=== PATIENT | male | born 1935 | race Caucasian/White ===

== ENCOUNTER 2017-05-12 19:34 | Emergency (ER) | payer MEDICARE, BC ==
[2017-05-12 20:08] LABS: BASOPHILS 0.4 % (0-2); EOSINOPHILS 0.7 % (0-7); HEMATOCRIT 42.3 % (42.0-54.0); HEMOGLOBIN 14.5 g/dL (13.5-17.5); IMMATURE GRANULOCYTES 0.4 % (0-5); LYMPHOCYTES 11.5 % (15-50); MCH 31.9 pg (26.0-34.0); MCHC 34.3 g/dL (31.0-37.0); MEAN PLATELET VOLUME 8.8 fL (7.4-10.4); MONOCYTES 0.4 % (2-11); NEUTROPHILS 86.6 % (40-80); PLATELET COUNT 166 10x3/uL (130-400); RBC 4.55 10x6/uL (4.20-6.10); RDW 12.9 % (11.5-14.5); WBC 2.8 10x3/uL (4.8-10.8)
[2017-05-12 20:36] LABS: ALKALINE PHOSPHATASE 134 U/L (46-116); ALT (SGPT) 189 U/L (10-68); BILIRUBIN - TOTAL 2.08 mg/dL (0.2-1.3); CALC OSMOLALITY 283 mosm/kg (275-300); CALCIUM 8.8 mg/dL (8.5-10.1); CARBON DIOXIDE 26.5 mmol/L (21.0-32.0); CHLORIDE - SERUM 102 mmol/L (98-107); CKMB 2.2 U/L (0.0-3.6); CREATINE KINASE 148 UL (21-232); CREATININE - SERUM 1.3 mg/dL (0.6-1.3); GLUCOSE 106 mg/dL (74-106); PROTEIN - SERUM 6.9 g/dL (6.4-8.2); SODIUM 139 mmol/L (136-145); TROPONIN-I < 0.017 ng/mL (0.000-0.060); UREA NITROGEN 29 mg/dL (7-18); eGFR NON AFRICAN AMERICAN 56 mL/min (90-120)
[2017-05-12 20:37] LABS: POTASSIUM - SERUM 2.8 mmol/L (3.5-5.1)
[2017-05-12 21:15] LABS: AMYLASE - SERUM 50 U/L (25-115); LIPASE 233 U/L (73-393)
== END 2017-05-12 22:05 | disposition home or self-care (01) ==
LOC: D.ER 19:34
PROVIDERS: Emergency Medicine; Physician Assistant
DX: R50.9 Fever, unspecified (principal); R53.1 Weakness; R91.8 Other nonspecific abnormal finding of lung field; R79.89 Other specified abnormal findings of blood chemistry; Z86.79 Personal history of other diseases of the circulatory system; D72.819 Decreased white blood cell count, unspecified; E87.6 Hypokalemia; I10 Essential (primary) hypertension

== ENCOUNTER 2018-11-17 19:21 | Inpatient (IN) | payer MEDICARE, BC ==
[~2018-11-17] VITALS: Ht 180.3 cm; Wt 86.2 kg
[2018-11-17] MEDS ORDERED: NORVASC10 MG PO (19:57)
[2018-11-17] MEDS ORDERED: DIOVAN320 MG PO (19:57)
[2018-11-17] MEDS ORDERED: PROSCAR5 MG PO (19:58)
[2018-11-17] MEDS ORDERED: BAYER CHEWABLE81 MG PO (19:58)
[2018-11-17] MEDS ORDERED: TOPROL XL50 MG PO (19:58)
[2018-11-17] MEDS ORDERED: LEVOXYL75 MCG PO (19:58)
[2018-11-17] MEDS ORDERED: PLAVIX75 MG PO (19:58)
[2018-11-17] MEDS ORDERED: VITAMIN B-122500 MCG PO (19:59)
[2018-11-17] MEDS ORDERED: VITAMIN C WIT1000 MG PO (19:59)
[2018-11-17] MEDS ORDERED: VITAMIN E100 UNIT PO (19:59)
[2018-11-17] MEDS ORDERED: OMEGA-3100 MG PO (19:59)
[2018-11-17 21:11] LABS: APPEARANCE TURBID (CLEAR)
[2018-11-17 21:12] LABS: COLOR RED (YELLOW)
[2018-11-17 21:14] LABS: BACTERIA FEW /hpf (NEGATIVE); RED CELLS - URINE >50 /hpf (0-5); WHITE CELLS - URINE 0-5 /hpf (NEGATIVE)
[2018-11-17] MEDS ORDERED: CIPRO250 MG PO (21:18)
[2018-11-17] MEDS ORDERED: HYDROCODONE-A1 UDTA2 PO (21:18)
[2018-11-17 22:01] LABS: BASOPHILS 0.1 % (0-2); EOSINOPHILS 0.7 % (0-7); HEMATOCRIT 39.6 % (42.0-54.0); IMMATURE GRANULOCYTES 0.2 % (0-5); LYMPHOCYTES 21.1 % (15-50); MCH 32.2 pg (26.0-34.0); MCHC 35.4 g/dL (31.0-37.0); MEAN PLATELET VOLUME 9.1 fL (7.4-10.4); MONOCYTES 6.7 % (2-11); NEUTROPHILS 71.2 % (40-80); RBC 4.35 10x6/uL (4.20-6.10); RDW 12.7 % (11.5-14.5); WBC 8.4 10x3/uL (4.8-10.8)
[2018-11-17 22:11] LABS: INR 0.97 (0.85-1.17); PLATELET COUNT 202 10x3/uL (130-400); PROTIME 12.4 SECONDS (11.6-15.0)
[2018-11-17 22:15] LABS: ALBUMIN 3.7 g/dL (3.4-5.0); ANION GAP 13.2 mmol/L (8-16); BILIRUBIN - TOTAL 1.19 mg/dL (0.2-1.3); CALCIUM 9.4 mg/dL (8.5-10.1); CARBON DIOXIDE 27.4 mmol/L (21.0-32.0); CREATININE - SERUM 1.4 mg/dL (0.6-1.3); POTASSIUM - SERUM 3.6 mmol/L (3.5-5.1); PROTEIN - SERUM 6.9 g/dL (6.4-8.2)
--- NOTE | 2018-11-17 23:07 | NUR ---
ATTEMPTED TO IRRIGATE CATHETER. INITIALLY URINE COLOR BEGAN TO LIGHTEN BUT AFTER ABOUT 200ML CATHETER STOPPED WORKING. BRIGHT RED BLOOD COMING FROM AROUND CATHETER. REPLACED CATHERTER WITH 18 FR COUDE. ATTEMPTED TO IRRIGATED AFTER 150 ML CATHETER STOPPED WORKING. SET UP FOR CONT IRRIGATION PER MD ORDERS. AFTER 2 ATTEMPTED TO INSERT 3WAY IRRIGATION CATHETER BY THIS NURSE AND TRIAGE NURSE, UNSUCCESSFUL IN INSERTION. NOTIFIED ELIZABETH. INSTRUCTED TO ACTIVATE OR TEAM SO HE CAN TAKE PATIENT TO THE OR FOR A SCOPE
--- NOTE | 2018-11-17 23:51 | NUR ---
OR TRANSFER PT TO FLOOR AT THIS TIME. RUFUS PRICE
[2018-11-18] VITALS (10 sets, daily range): BP systolic 72–153; BP diastolic 47–80; Ht 180.3 cm; Wt 86.2 kg
[2018-11-18 05:02] LABS: BASOPHILS 0 % (0-2); EOSINOPHILS 0.1 % (0-7); HEMATOCRIT 34.9 % (42.0-54.0); HEMOGLOBIN 12.1 g/dL (13.5-17.5); IMMATURE GRANULOCYTES 0.4 % (0-5); LYMPHOCYTES 10.5 % (15-50); MCH 31.7 pg (26.0-34.0); MCHC 34.7 g/dL (31.0-37.0); MCV 91.4 fL (80.0-100.0); MEAN PLATELET VOLUME 9.4 fL (7.4-10.4); MONOCYTES 5.8 % (2-11); NEUTROPHILS 83.2 % (40-80); PLATELET COUNT 200 10x3/uL (130-400); RBC 3.82 10x6/uL (4.20-6.10); RDW 12.8 % (11.5-14.5)
[2018-11-18 05:22] LABS: ANION GAP 10.8 mmol/L (8-16); CALCIUM 8.4 mg/dL (8.5-10.1); CARBON DIOXIDE 28.9 mmol/L (21.0-32.0); CREATININE - SERUM 1.3 mg/dL (0.6-1.3); MAGNESIUM - SERUM 1.9 mg/dL (1.8-2.4); PHOSPHOROUS 4.1 mg/dL (2.5-4.9); POTASSIUM - SERUM 3.7 mmol/L (3.5-5.1)
--- NOTE | 2018-11-18 07:50 | NUR ---
ROUNDING DONE WITH PATIENT HAVING NO NEEDS AT THIS TIME. ON 1L PER NC. LEFT WRIST SEEN WITH SALINE LOCK, RIGHT WIRST PIV WITH D5NS INFUSING AT 100 CC/HR. CONINUOUS IRRIAGATION SEEN TO BLAKE CATH WITH GRAPEFUIT COLOR OUTPUT. NO CLOTS SEEN. AT BEDSIDE. ON EP, LAB VALUES GOOD. WILL CPOC.
--- NOTE | 2018-11-18 08:12 | OP ---
PATIENT NAME: KARLEY MCRAE MEDICAL RECORD: [id number] :39 LOCATION:D.M3 D.1213 ADMISSION DATE:11/17/18 SURGEON: TYESHA ELIZABETH MD DATE OF OPERATION: 11/18/2018 SURGEON: Tyesha Elizabeth MD ANESTHESIA: TIVA by Isauro Reilly CRNA DIAGNOSES: Clot, urinary retention, gross hematuria. PROCEDURES: Cystoscopy, bladder clot evacuation, fulguration of bleeders, Holly catheter insertion. FINDINGS: Bladder filled with clots. Large veins on the prostatic urethra near the bladder neck were bleeding. These were fulgurated. BLOOD LOSS: Difficult to estimate. CLINICAL HISTORY: This is an 83-year-old male, who came to the Emergency Room. He had gross hematuria starting from yesterday. Today, he was unable to void as his bladder had filled up with clots. The ER tried to insert a Holly catheter, but it probably plugged up with clots. Therefore, urological consultation was requested. He has not eaten since early in the morning today. We are now bringing him to the operating room for cystoscopy, bladder clot evacuation, and insertion of a Holly catheter over a guidewire to start continuous bladder irrigation. He was given Ancef lead applications developer to the OR. DESCRIPTION OF PROCEDURE: The patient was given IV sedation. He was then placed in the lithotomy position and prepped and draped. A 21-Croatian cystoscope with 30-degree lens was used for visualization. The prostatic urethra and the bladder were filled with blood clots. A Johanny syringe was used through the cystoscope sheath to start the declotting process. As the clots became smaller, I then switched to the [facility] evacuator. Looking into the bladder, there was no obvious sign of a bladder tumor. There was no obvious bladder bleeding. However, looking at the prostatic urethra, there was venous bleeding coming from numerous veins near the bladder neck and the prostatic urethra. We switched the irrigation from normal saline to sterile water. A Bugbee electrode was introduced and these bleeding veins were coagulated. Once there was no further active bleeding through the sheath of the cystoscope, I inserted a Sensor wire into the bladder. The cystoscope sheath was then removed leaving the wire in place. A 24-Croatian 3-way knik tip Holly catheter was then inserted over the guidewire into the bladder. Once the catheter was fully in the bladder, the balloon was inflated with 10 cc of sterile water. Then, continuous bladder irrigation was started with normal saline. The sensor wire was removed entirely. The patient has had a previous [facility] TURP followed by a resection loop TURP 3 years ago in [place], [place]. 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 There was no obstruction in the prostatic urethra. TRANSINT:[id number] Voice Confirmation ID: [id number] DOCUMENT ID: [id number] OPERATIVE REPORT [id number] KARLEY MCRAE ROBERT S MD at 0812 CC: [id number] DICTATION DATE: 11/18/18 010 ARTIST'S REPRESENTATIVE: 11/18/18 0655 [facility] [place] [id number] [place] [address]
--- NOTE | 2018-11-18 16:16 | NUR ---
PATIENT WITH 99.5 TEMP. ENCOURGED TO COUGH AND DEEP BREATH.
--- NOTE | 2018-11-18 16:42 | NUR ---
STILL WITH CONINUOUS IRRIGATION GOING. URINE IS SLIGHT RED, 1 SMALL CLOST SEEN TO TUBING. WILL CPOC.
--- NOTE | 2018-11-18 17:31 | NUR ---
ASSISTED TO RESTROOM FOR BM. SMALL, BROWN FORMED. CLEAN GOWN AND GENITAL AREA CLEANED UP. RIGHT IV IS INFILTRATING. IV CATH REMOVED WITH TIP INTACT. SALINE LOCK TO LEFT WRIST IS USED FOR PRIMARY FLUIDS.
--- NOTE | 2018-11-18 19:50 | NUR ---
EVEINING ROUNDS COMPLETED. VSS, AAOX3, THREE CONSTANT BLADDER IRRIGATION SYSTEM INTACT. MINIMAL BLEEDING OBSERVED AT TIP OF BLAKE CATH. HELP CLEANED SITE. PT OUTPUT AT THIS TIME IS 1000CC'S, WILL CTM. PT DENIES ANY PAIN AT THIS TIME. URINE CLEAR, BUT BLOOD TINGED. PT STATES IT HAS IMPROVED COMPARED TO "YESTERDAY." PT DENIES ANY FURTHER NEEDS AT THIS TIME. WILL CPOC. CL WITHIN REACH BED IN LOW, SR UP X2.
--- NOTE | 2018-11-18 23:30 | NUR ---
ASSIST PT TO THE REST ROOM. PT 3-WAY IRRIGATION SYSTEM INTACT AND DRAINING. PT DENIES ANY FURTHER NEEDS AT THIS TIME. WILL CPOC.
[2018-11-19] VITALS: BP 155/77
[2018-11-19 03:59] VITALS: BP 157/82
[2018-11-19 07:09] LABS: BASOPHILS 0.3 % (0-2); EOSINOPHILS 2.9 % (0-7); HEMATOCRIT 32.1 % (42.0-54.0); HEMOGLOBIN 11.1 g/dL (13.5-17.5); IMMATURE GRANULOCYTES 0.1 % (0-5); LYMPHOCYTES 21.7 % (15-50); MCH 31.7 pg (26.0-34.0); MCHC 34.6 g/dL (31.0-37.0); MCV 91.7 fL (80.0-100.0); MEAN PLATELET VOLUME 9.1 fL (7.4-10.4); MONOCYTES 9.2 % (2-11); NEUTROPHILS 65.8 % (40-80); PLATELET COUNT 192 10x3/uL (130-400); WBC 7.3 10x3/uL (4.8-10.8)
[2018-11-19 07:11] VITALS: BP 157/87
--- NOTE | 2018-11-19 07:30 | NUR ---
PT RESTING IN BED, SHIFT ASSESSMENT PERFORMED. VSS AND WNL. DENIES ANY NEEDS AT THIS TIME, WILL CONT TO FOLLOW POC
[2018-11-19 07:35] LABS: CALCIUM 8.2 mg/dL (8.5-10.1); CARBON DIOXIDE 29.1 mmol/L (21.0-32.0); CHLORIDE - SERUM 110 mmol/L (98-107); POTASSIUM - SERUM 3.3 mmol/L (3.5-5.1); SODIUM 145 mmol/L (136-145); eGFR NON AFRICAN AMERICAN 76 mL/min (90-120)
[2018-11-19 07:41] LABS: CALC OSMOLALITY 289 mosm/kg (275-300); GLUCOSE 120 mg/dL (74-106); UREA NITROGEN 12 mg/dL (7-18)
[2018-11-19] MEDS ORDERED: LEVAQUIN750 MG PO (11:29)
[2018-11-19 11:41] VITALS: BP 150/89
--- NOTE | 2018-11-19 12:24 | MORECARE ---
CASE MANAGEMENT DISCHARGE SUMMARY PATIENT: KARLYE MCRAE UNIT: [id number] ADM DATE: 11/18/18 AGE: 83 : 37 SEX: M ROOM/BED: D.1213 AUTHOR: MAREDOC PHYSICIAN: REFERRING PHYSICIAN: SAMARIA ARREOLA MD DATE OF SERVICE: 11/19/18 Discharge Plan Patient Name: KARLEY MCRAE Facility: [facility]:[place] : 1935 Planned Disposition: Home Anticipated Discharge Date: 11/19/18 Discharge Date: Expected LOS: 1 Initial Reviewer: [email or web address] Initial Review Date: 11/18/2018 Generated: 11/19/18 1:24 pm Comments DCP- Discharge Planning Updated by [email or web address]: Lily Avila on 11/19/18 11:[address] DC PLAN: Return home with his independently. ANTICIPATED DC NEEDS: Denied dc needs. CM met with patient to complete initial dc planning assessment. CM educated patient on the CM role and verbal consent given by patient to complete assessment. CM verified patient's address, phone number, and emergency contact phone numbers. Patient lives at home with his and reports he is independent in her care at home. At discharge patient plans to return home with his and feels this is a safe discharge. On November 30 they will be going to [facility] where his works and he will follow up with urology there if needed. CM discussed availability of home health, rehab services, and medical equipment. Patient denied known discharge needs at this time. Patient reports his will transport him home at time of discharge. CM will continue to follow and will assist as needed with dc plans/needs. Admit/DC IMM delivered, explained, signed by the patient, and placed in his chart. Signed form also left with patient. Lily Avila RN, [facility] DCPIA - Discharge Planning Initial Assessment Updated by [email or web address]: Lily Avila on 11/19/18 12:18 pm * Is the patient Alert and Oriented? Yes * How many steps to enter\exit or inside your home? NONE * PCP Dr. Jeyson Michelle - [place] * Pharmacy [facility] * Preadmission Environment Home with Family * ADLs Independent * Equipment None * List name and contact numbers for known caregivers / representatives who currently or will assist patient after discharge: Adamaris Ching - dale - [phone] * Verbal permission to speak to the caregivers and representatives has been obtained from the patient. Yes * Community resources currently utilized None * Additional services required to return to the preadmission environment? No * Can the patient safely return to the preadmission environment? Yes * Has this patient been hospitalized within the prior 30 days at any hospital? No Patient Name: KARLEY MCRAE Page [id number] at 1224 All edits/amendments must be made on the electronic document DICTATION DATE: 11/19/18 1224 SALVAGE WINDER: NELLY 11/19/18 1224 RPT#: [id number] DC DATE: STATUS: ADM IN [facility] [address] [place] [address] END OF REPORT
--- NOTE | 2018-11-19 12:30 | NUR ---
PAGED . PER LEAVE BLAKE CATHETER IN BUT PLACE A CATHETER STOP IN THE IRRIGATION PORT. SET UP A FOLLOW-UP APPT WITH IN ONE WEEK TO REMOVE BLAKE CATHETER
--- NOTE | 2018-11-19 13:16 | NUR ---
PIV TO LEFT WRIST REMOVED WITH CATHETER TIP INTACT. DISCHARGE INSTRUCTIONS REVIEWED WITH PT AND ALL QUESTIONS ANSWERED. BLAKE CATHETER LEFT IN PLACE PER . PROVIDED PT WITH LEG DRAINAGE BAG PER PT REQUEST. PT TAKEN TO THE FRONT OF THE HOSPITAL VIA WHEELCHAIR WHERE HE LEFT WITH HIS .
--- NOTE | 2018-11-19 13:47 | MORECARE ---
CASE MANAGEMENT DISCHARGE SUMMARY PATIENT: KARLEY MCRAE UNIT: [id number] ADM DATE: 11/18/18 AGE: 83 : 37 SEX: M ROOM/BED: D.1213 AUTHOR: MARE,DOC PHYSICIAN: REFERRING PHYSICIAN: SAMARIA ARREOLA MD DATE OF SERVICE: 11/19/18 Discharge Plan Patient Name: KARLEY MCRAE Facility: [facility]:[place] : 1935 Planned Disposition: Home Anticipated Discharge Date: 11/19/18 Discharge Date: 11/19/2018 Expected LOS: 1 Initial Reviewer: [email or web address] Initial Review Date: 11/18/2018 Generated: 11/19/18 2:46 pm DCP- Discharge Planning Updated by [email or web address]: Lily Avila on 11/19/18 11:[address] DC PLAN: Return home with his independently. ANTICIPATED DC NEEDS: Denied dc needs. CM met with patient to complete initial dc planning assessment. CM educated patient on the CM role and verbal consent given by patient to complete assessment. CM verified patient's address, phone number, and emergency contact phone numbers. Patient lives at home with his and reports he is independent in her care at home. At discharge patient plans to return home with his and feels this is a safe discharge. On November 30 they will be going to [facility] where his works and he will follow up with urology there if needed. CM discussed availability of home health, rehab services, and medical equipment. Patient denied known discharge needs at this time. Patient reports his will transport him home at time of discharge. CM will continue to follow and will assist as needed with dc plans/needs. Admit/DC IMM delivered, explained, signed by the patient, and placed in his chart. Signed form also left with patient. Lily Avila RN, [facility] DCPIA - Discharge Planning Initial Assessment Updated by [email or web address]: Lily Avila on 11/19/18 12:18 pm * Is the patient Alert and Oriented? Yes * How many steps to enter\exit or inside your home? NONE * PCP Dr. Jeyson Michelle [facility] * Pharmacy [facility] * Preadmission Environment Home with Family * ADLs Independent * Equipment None * List name and contact numbers for known caregivers / representatives who currently or will assist patient after discharge: Adamaris Ching - - [phone] * Verbal permission to speak to the caregivers and representatives has been obtained from the patient. Yes * Community resources currently utilized None * Additional services required to return to the preadmission environment? No * Can the patient safely return to the preadmission environment? Yes * Has this patient been hospitalized within the prior 30 days at any hospital? No Coverage Notice Reviewer: [email or web address] Bossman Avila Notice Issued Date-Time: 11/19/2018 12:26 Notice Type: IM Discharge Notice Notice Delivered To: Patient Relationship to Patient: Fire Pilot Name: Delivery Method: HAND - Hand Delivered Dian Days: Prior Verbal Notification: Yes Recipient Understood Notice: Yes Recipient Signature: Seth Rec Note Co-signed by Attending: Coverage Notice Comment: Last DP export: 11/19/18 11:24 a Patient Name: KARLEY MCRAE Page [phone] at 1347 All edits/amendments must be made on the electronic document DICTATION DATE: 11/19/18 1346 COAL PULVERIZING OPERATOR: NELLY 11/19/18 1346 RPT#: [id number] DC DATE:11/19/18 STATUS: DIS IN [facility] [address] [place] [address] END OF REPORT
== END 2018-11-19 13:23 | disposition home or self-care (01) | DRG 717 ==
LOC: D.ER 19:21 → D.M3 22:06 → OBSVTIME 22:06 → D.M3 11-18 19:38
PROVIDERS: Emergency Medicine; ADMIT Internal Medicine Nephrology; ATTEND Internal Medicine Nephrology
PROC: 0TCB8ZZ Extirpation of Matter from Bladder, Via Natural or Artificial Opening Endoscopic (ICD-10-PCS; principal; 2018-11-18)
PROC: 0W3R8ZZ Control Bleeding in Genitourinary Tract, Via Natural or Artificial Opening Endoscopic (ICD-10-PCS; 2018-11-18)
PROC: 0T9B80Z Drainage of Bladder with Drainage Device, Via Natural or Artificial Opening Endoscopic (ICD-10-PCS; 2018-11-18)
DX: N40.1 Benign prostatic hyperplasia with lower urinary tract symptoms (principal); N17.9 Acute kidney failure, unspecified; D62 Acute posthemorrhagic anemia; N13.8 Other obstructive and reflux uropathy; N32.89 Other specified disorders of bladder; N36.8 Other specified disorders of urethra; I25.10 Atherosclerotic heart disease of native coronary artery without angina pectoris; I10 Essential (primary) hypertension; E78.5 Hyperlipidemia, unspecified

== ENCOUNTER → 2018-11-26 18:51 | Outpatient (CLI) | payer MEDICARE, BC ==
[2018-11-18 15:17] VITALS: BMI 26.5
[~2018-11-26 18:51] MED LIST: BAYER CHEWABLE81 MG PO; CIPRO250 MG PO; DIOVAN320 MG PO; HYDROCODONE-A1 UDTA2 PO; LEVAQUIN750 MG PO; LEVOXYL75 MCG PO; NORVASC10 MG PO; OMEGA-3100 MG PO; PLAVIX75 MG PO; PROSCAR5 MG PO; TOPROL XL50 MG PO; VITAMIN B-122500 MCG PO; VITAMIN C WIT1000 MG PO; VITAMIN E100 UNIT PO
== END | disposition home or self-care (01) ==
LOC: D.LABREF 18:51
PROVIDERS: ATTEND Urology
DX: Z98.890 Other specified postprocedural states (principal)